=== PATIENT | male | born 1960 | race Caucasian/White ===

== ENCOUNTER 2018-06-27 08:26 | Day surgery (SDC) | payer BC ==
[~2018-06-27 08:26] MED LIST: LIDOCAINE HCL 1% MPF 30 SOL ONE; PROPOFOL 500 MG/50 ML EMU IV ONE
[2018-06-27 10:45] VITALS: BP 113/80; PULSE 77; RESP 20; TEMP 97.5; O2SAT 100
== END 2018-06-27 10:55 | disposition home or self-care (01) ==
LOC: SURG 08:26
PROVIDERS: ATTEND Surgery
DX: Z12.11 Encounter for screening for malignant neoplasm of colon (principal)
CPT/HCPCS: J2001; J2704